=== PATIENT | male | born 1995 | race Caucasian/White ===

== ENCOUNTER 2019-08-20 00:55 | Emergency (ER) | payer OTHER, SELFPAY ==
--- NOTE | ~2019-08-20 | XR_ITS ---
EXAMINATION: XR chest 1V portable DATE: 08/20/2019 01:33 INDICATION: Cough. TECHNIQUE: A single frontal view of the chest was obtained on 2 radiographs. COMPARISON: Chest 2 views 12/27/2018 FINDINGS: The chest demonstrates clear lungs without pneumonia, pleural effusion, or pneumothorax. Th e heart size is normal. IMPRESSION: 1. No acute cardiopulmonary disease. Reviewed, dictated and finalized at location A.
[2019-08-20 01:02] VITALS: BP 166/88; PULSE 87; RESP 16; TEMP 37; O2SAT 97
--- NOTE | 2019-08-20 01:09 | ED.SOB ---
HPI - SOB/Dyspnea General Chief Complaint: Shortness of Breath/Dyspnea Stated Complaint: asthma Time Seen by Provider: 08/20/19 00:59 Source: RN notes reviewed History of Present Illness HPI Narrative: Patient presents emergency department from home for asthma exacerbation. Patient states that roughly 1 hour ago began to feel short of breath. States he was having wheezing and uses inhaler at home with no relief. Patient states he has had some congestion over the past 2 days with a dry cough. Denies any fevers or chills chest pain abdominal pain nausea vomiting or any other symptoms. Patient states this does feel like a normal flareup of his asthma. Related Data Home Medications Medication Instructions Recorded Confirmed albuterol sulfate 90 mcg/actuation 2 puff INHALATION Q4H PRN gm 06/12/19 06/12/19 aerosol inhaler cetirizine 10 mg tablet 10 mg PO DAILY 06/12/19 06/12/19 fluticasone propionate 50 2 spray NASAL DAILY 06/12/19 06/12/19 mcg/actuation nasal spray,suspension Allergies Allergy/AdvReac Type Severity Reaction Status Date / Time No Known Allergies Allergy Unknown Unverified 12/27/18 10:00 Review of Systems Review of Systems: Narrative: Gen.: Denies fevers or chills ENT: Denies congestion Respiratory: See HPI GI: Denies abdominal pain nausea, emesis or diarrhea Musculoskeletal: Denies back pain or muscle pain Neuro: Denies numbness, tingling, weakness or focal weakness Skin: Denies rash Except as documented, all other systems reviewed and negative PMFSH Past Medical History Medical History (Updated 08/20/19 @ 02:04 by Montez Smalls DO) Asthma Social History Social History Smoking status: Never smoker Alcohol intake: current Exam Narrative: Exam Narrative: APPEARANCE: No acute distress, nontoxic, resting in bed EYES: EOMI HEENT: Normocephalic, atraumatic, OMM RESPIRATORY: No respiratory distress wheezing in the bilateral upper lung matias, decreased breath sounds at bases, no rhonchi or rales. CARDIOVASCULAR: Regular rate and rhythm without murmurs rubs or gallops. ABDOMINAL: Soft, nontender, nondistended, no rebound or guarding MUSCULOSKELETAl: Moves all extremities. No clubbing, cyanosis or edema. NEURO: Awake and alert. Following commands, speech normal, no focal deficits SKIN:: Warm, dry. No rashes lesions or abrasions PSYCHIATRIC: Normal affect/mood, Course Course Emergency Course: Patient states he is feeling much better following breathing treatments. Repeat lung exam clear all station bilaterally Discussed with patient results of workup and diagnosis. Discussed need for follow-up with primary care, proper use of medication, and reasons to return to the emergency department. Patient understands and agrees to current treatment plan. States he has an inhaler at home Vital Signs Vital signs: Vital Signs Temperature 98.6 F 08/20/19 01:02 Pulse Rate 87 08/20/19 01:02 Respiratory Rate 16 08/20/19 01:02 Blood Pressure 166/88 H 08/20/19 01:02 Pulse Oximetry 97 08/20/19 01:02 Temperature 98.6 F 08/20/19 01:02 Pulse Rate 92 08/20/19 02:28 Respiratory Rate 20 08/20/19 02:28 Blood Pressure 166/88 H 08/20/19 01:02 Pulse Oximetry 97 08/20/19 01:02 MDM - SOB/Dyspnea Imaging Data Attestation: I personally reviewed and interpreted this imaging study as follows: My impression: Chest x-ray reviewed by myself shows no acute process Discharge Plan Discharge Clinical Impression: Asthma exacerbation Patient Disposition: Home, Self-Care Condition: Stable Instructions: Antibiotic Form, Asthma (ED) Additional Instructions: Return for increasing shortness of breath fever or any other symptoms of concern Prescriptions: New prednisone 20 mg tablet 20 mg PO BID Qty: 8 RF: 0 No Action albuterol sulfate 90 mcg/actuation HFA aerosol inhaler 2 puff INHALATION Q4H PRN
[2019-08-20] MEDS: predniSONE 20 MG TABLET 60 MG PO (01:12)
[2019-08-20 01:23] VITALS: PULSE 90; RESP 18
[2019-08-20] MEDS: IPRATROPIUM BR 0.02% INH SOLN 0.5 MG/2.5 ML VIAL INHALATION ×2 (01:23→02:21)
[2019-08-20] MEDS: ALBUTEROL SULFATE NEB 2.5 MG/0.5 ML INH 5 MG INHALATION ×2 (01:23→02:20)
[2019-08-20 01:29] VITALS: PULSE 101; RESP 20
[2019-08-20 02:22] VITALS: PULSE 90; RESP 20
[2019-08-20 02:28] VITALS: PULSE 92; RESP 20
[2019-08-20 02:48] VITALS: BP 122/77; PULSE 77; RESP 18; O2SAT 98
== END 2019-08-20 02:49 | disposition home or self-care (01) ==
PROVIDERS: Emergency Provider Emergency Medicine; PCP Internal Medicine
DX: J45.901 Unspecified asthma with (acute) exacerbation (principal)
CPT/HCPCS: 71045; 94640; 99283; J7512

== ENCOUNTER 2019-11-18 16:11 | Emergency (ER) | payer OTHER, SELFPAY ==
[2019-11-18 16:20] VITALS: BP 150/73; PULSE 81; RESP 20; TEMP 36.8; O2SAT 100
--- NOTE | 2019-11-18 16:41 | ED.URI ---
HPI - URI/Sore Throat General Chief Complaint: Upper Respiratory Infection Stated Complaint: swollen glands Time Seen by Provider: 11/18/19 16:41 Source: patient and RN notes reviewed Mode of arrival: ambulatory Limitations: no limitations History of Present Illness HPI Narrative: 23-year-old male who presents to [facility] care with complaints of swollen glands for the past 2 to 3 days to the left side of his neck. Patient states last week he had left armpit lymph node swelling with resolution at present time. Patient denies any sore throat,any ear pain, fevers,sinus congestion, headaches or any respiratory congestion. Patient has history of asthma, denies any wheezing or any dyspnea, lungs clear to auscultation, SAO2 100% on room air. MD elicited complaint: other (Swollen glands) Pertinent past history: asthma and other Onset (ago): day(s) (2 to 3 days neck one-week left axilla) Consistency: intermittent Severity: mild Pain scale (0-10): 4 Able to tolerate fluids by mouth: Yes Exacerbating factors: nothing Relieving factors: nothing Associated symptoms: denies other symptoms Treatments prior to arrival: none Related Data Home Medications Medication Instructions Recorded Confirmed albuterol sulfate 90 mcg/actuation 2 puff INHALATION Q4H PRN gm 06/12/19 09/25/19 aerosol inhaler cetirizine 10 mg tablet 10 mg PO DAILY 06/12/19 09/25/19 fluticasone propionate 50 2 spray NASAL DAILY 06/12/19 09/25/19 mcg/actuation nasal spray,suspension Allergies Allergy/AdvReac Type Severity Reaction Status Date / Time No Known Allergies Allergy Unknown Unverified 12/27/18 10:00 Review of Systems Review of Systems: Narrative: CONSTITUTIONAL: Denies fever, chills, or sweats. EYES: Denies visual changes, redness, or discharge. ENT: Denies rhinorrhea, congestion, sore throat, or otalgia, swollen glands left neck CARDIOVASCULAR: Denies chest pain, palpitations, or edema. RESPIRATORY: Denies cough or dyspnea. GASTROINTESTINAL: Denies abdominal pain, nausea, vomiting, or diarrhea. GENITOURINARY: Denies dysuria or hematuria. SKIN: Denies rash or itching. MUSCULOSKELETAL: Denies back pain, joint pain, or myalgia, one week duration of swollen lymph node left axilla which has resolved NEUROLOGIC: Denies headache, numbness, or weakness. PSYCHIATRIC: Denies anxiety or depression. All systems reviewed & are unremarkable except as noted in HPI and below PMFSH Past Medical History Medical History (Updated 11/19/19 @ 00:00 by Jonny Silva) Asthma Fracture of left wrist Social History Social History (Updated 11/18/19 @ 17:09 by Lou Odell NP) Smoking status: Never smoker Alcohol intake: current Living arrangements: with family Occupation/Education: student Gender identity (if verbalized by the patient): Male Comments At time of signature, agree with nursing past medical, surgical, social history. There is no relevant family history pertinent to the presenting complaint Exam Narrative: Exam Narrative: GENERAL: Well-appearing, well-nourished, and in no acute distress. HEAD: Normocephalic, atraumatic. EYES: PERRLA and EOMI. ENT: Nares clear, no rhinorrhea or epistaxis. Mucous membranes moist.TM's normal with good light reflex.throat pink with no tonsil enlargement or any exudates NECK: Supple lymphadenopathy present to left side of neck, no palpation of enlarged lymph nodes in axilla or groin CHEST: Clear to auscultation. No respiratory distress.SAO2 100% on room air HEART: Regular rate and rhythm. No murmur heard. Normal peripheral pulses. ABDOMEN: Soft, nontender, nondistended, normal active bowel sounds. EXTREMITIES: Normal range of motion. No edema. SKIN: Warm, dry, no rash. NEURO: No focal deficits. Alert and oriented x3. Course Vital Signs Vital signs: Vital Signs Temperature 36.8 C 11/18/19 16:20 Pulse Rate 81 11/18/19 16:20 Respiratory Rate 20 11/18/19 16:20 Blood Pressure 150/73 H
== END 2019-11-18 17:20 | disposition home or self-care (01) ==
PROVIDERS: Emergency Provider Registered Nurse; PCP Internal Medicine
DX: B34.9 Viral infection, unspecified (principal); J45.909 Unspecified asthma, uncomplicated
CPT/HCPCS: 36416; 86308; 99213; G0463

== ENCOUNTER 2021-02-21 15:27 | Emergency (ER) | payer OTHER, SELFPAY ==
[2021-02-21 15:35] VITALS: BP 147/72; PULSE 66; RESP 16; TEMP 37.2; O2SAT 100
--- NOTE | 2021-02-21 15:54 | ED.URI ---
HPI - URI/Sore Throat General Chief Complaint: Upper Respiratory Infection Stated Complaint: Sore Throat Time Seen by Provider: 02/21/21 15:50 Source: patient, RN notes reviewed and old records reviewed Mode of arrival: ambulatory Limitations: no limitations History of Present Illness HPI Narrative: 25 year old male who presents to [facility] care with complaints of not feeling well today,states he woke up with a sore throat. Patient states that his throat doesn't hurt as bad now but he was exposed to strep over the weekend by significant other. He admits also to having some nasal congestion and drainage, denies any known fevers, chills or sweats.Patient denies any body aches, has had COVID vaccinations. MD elicited complaint: sore throat, rhinorrhea and nasal congestion Related Data Allergies Allergy/AdvReac Type Severity Reaction Status Date / Time No Known Allergies Allergy Unknown Verified 11/28/19 15:58 Review of Systems Review of Systems: CONSTITUTIONAL: Denies fever, chills, or sweats. EYES: Denies visual changes, redness, or discharge. ENT: Positive rhinorrhea, congestion, sore throat, no otalgia. CARDIOVASCULAR: Denies chest pain, palpitations, or edema. RESPIRATORY: Denies cough or dyspnea. GASTROINTESTINAL: Denies abdominal pain, nausea, vomiting, or diarrhea. GENITOURINARY: Denies dysuria or hematuria. SKIN: Denies rash or itching. MUSCULOSKELETAL: Denies back pain, joint pain, or myalgia. NEUROLOGIC: Denies headache, numbness, or weakness. PSYCHIATRIC: Denies anxiety or depression. All systems reviewed & are unremarkable except as noted in HPI and below PMFSH Past Medical History Medical History (Updated 02/21/21 @ 18:06 by Lou Odell NP) Asthma Fracture of left wrist Surgical History Surgical History (Updated 02/21/21 @ 18:06 by Lou Odell NP) No history of previous surgery Family History Family History (Updated 02/21/21 @ 18:10 by Lou Odell NP) Other No significant family history Social History Social History Smoking status: Never smoker Alcohol intake: current Drinks per week: 1 Alcohol use details: beer Substance use: never Gender identity (if verbalized by the patient): Male Comments At time of signature, agree with nursing past medical, surgical, social and family history. There is no relevant family history pertinent to the presenting complaint Exam Narrative: GENERAL: Well-appearing, well-nourished, and in no acute distress. HEAD: Normocephalic, atraumatic. EYES: PERRLA and EOMI. ENT: Nares pink,clear rhinorrhea no epistaxis. Mucous membranes moist.Tm's normal with good light reflex, throat with some redness, no lesions or exudates, tonsils red mild swelling, some post nasal drainage noted. post nasal drainage present, NECK: Supple.no lymphadenopathy CHEST: Clear to auscultation. No respiratory distress.SAO2 100% on room air HEART: Regular rate and rhythm. No murmur heard. Normal peripheral pulses. ABDOMEN: Soft, nontender, nondistended, normal active bowel sounds. EXTREMITIES: Normal range of motion. No edema. SKIN: Warm, dry, no rash. NEURO: No focal deficits. Alert and oriented x3. Course Vital Signs Vital signs: Vital Signs Temperature 37.2 C 02/21/21 15:35 Pulse Rate 66 02/21/21 15:35 Respiratory Rate 16 02/21/21 15:35 Blood Pressure 147/72 H 02/21/21 15:35 Pulse Oximetry 100 02/21/21 15:35 Temperature 37.2 C 02/21/21 15:35 Pulse Rate 66 02/21/21 15:35 Respiratory Rate 16 02/21/21 15:35 Blood Pressure 147/72 H 02/21/21 15:35 Pulse Oximetry 100 02/21/21 15:35 MDM - URI/Sore Throat Differential Diagnosis Differential diagnosis: Likely upper respiratory infection, pharyngitis and other (exposure to strep pharyngitis,) Medical Records Attestation: I reviewed the patient's medical records. Lab Data Attestation: I reviewed the patient's lab result
== END 2021-02-21 16:13 | disposition home or self-care (01) ==
PROVIDERS: Emergency Provider Registered Nurse; PCP Internal Medicine
DX: J02.9 Acute pharyngitis, unspecified (principal); Z20.818 Contact with and (suspected) exposure to other bacterial communicable diseases; J45.909 Unspecified asthma, uncomplicated
CPT/HCPCS: 87081; 87880; 99213; G0463

== ENCOUNTER 2021-07-22 11:14 | Emergency (ER) | payer OTHER, SELFPAY ==
[2021-07-22 11:19] VITALS: BP 127/70; PULSE 68; RESP 12; TEMP 36.9; O2SAT 100
--- NOTE | 2021-07-22 11:37 | ED.URI ---
HPI - URI/Sore Throat General Chief Complaint: Upper Respiratory Infection Stated Complaint: Cough, congestion Time Seen by Provider: 07/22/21 11:37 Source: patient and RN notes reviewed Mode of arrival: ambulatory Limitations: no limitations History of Present Illness HPI Narrative: 25-year-old male presented for complaint of sinus pressure and congestion, cough and wheezing for approximately 1 week. He states started with headache, body aches, sinus pressure/congestion, cough, fever/chills, and now it is in his chest. He has a history of asthma and has been using his inhaler more often. Cough is worse when lying down. He denies chest pain, nausea, vomiting, diarrhea, fever, chills, body aches. Recent covid in May 2021. MD elicited complaint: cough Related Data Home Medications Medication Instructions Recorded Confirmed albuterol 07/22/21 fluticasone propionate [Flovent INHALATION 07/22/21 HFA] Allergies Allergy/AdvReac Type Severity Reaction Status Date / Time No Known Allergies Allergy Unknown Verified 11/28/19 15:58 Review of Systems Review of Systems: CONSTITUTIONAL: Denies malaise, chills, sweats, fever EYES: Denies visual changes, redness, or discharge ENT: Reports rhinorrhea, congestion, sinus pain CARDIOVASCULAR: Denies chest pain, palpitations, edema RESPIRATORY: Reports cough, post nasal drainage. Denies dyspnea GASTROINTESTINAL: Denies abdominal pain, nausea, vomiting, diarrhea SKIN: Denies rash or itching MUSCULOSKELETAL: Denies myalgia NEUROLOGIC: Denies headache PMFSH Past Medical History Medical History (Updated 07/22/21 @ 11:49 by Reyna Garcia APRN) Asthma Fracture of left wrist Surgical History Surgical History No history of previous surgery Family History Family History Other No significant family history Social History Social History Smoking status: Never smoker Alcohol intake: current Drinks per week: 1 Alcohol use details: beer Substance use: never Gender identity (if verbalized by the patient): Male Exam Narrative: GENERAL: Ill-appearing, nontoxic HEAD: Normocephalic EYES: conjunctivae clear ENT: Mucous membranes moist. TM pearly mancilla with dull light reflex bilaterally; no tragal tenderness. Oropharynx erythematous without lesions or exudate, no drooling, no hoarseness, no trismus, uvula midline. NECK: Supple. No lymphadenopathy CHEST: Left lower lobe wheezing, No respiratory distress, speaks in full sentences. HEART: Regular rate and rhythm. No murmur heard. SKIN: Warm, dry, no rash. NEURO: Alert and oriented x3. PSYCH: Normal mood and affect Course Course Emergency Course: Patient is aware of diagnosis, understands and agrees to treatment plan. Anticipatory guidance given. Patient agrees to follow-up as directed and is aware of reasons to seek care at the emergency department. Portions of this record may have been created with voice recognition software Level of Care: Express Care Visit Vital Signs Vital signs: Vital Signs Temperature 98.4 F 07/22/21 11:19 Pulse Rate 68 07/22/21 11:19 Respiratory Rate 12 07/22/21 11:19 Blood Pressure 127/70 07/22/21 11:19 Pulse Oximetry 100 07/22/21 11:19 Temperature 98.4 F 07/22/21 11:19 Pulse Rate 68 07/22/21 11:19 Respiratory Rate 12 07/22/21 11:19 Blood Pressure 127/70 07/22/21 11:19 Pulse Oximetry 100 07/22/21 11:19 reviewed MDM - URI/Sore Throat MDM Narrative Medical decision making narrative: sx c/w URI. No indication to test for covid as he was positive 05/2021. Given hx asthma, will defer imaging at this time. Steroid, abx and will continue inhalers. Differential Diagnosis Differential diagnosis: Likely upper respiratory infection, sinusitis and viral infection Discharge P
== END 2021-07-22 11:54 | disposition home or self-care (01) ==
PROVIDERS: Emergency Provider Nurse Practitioner Family; PCP Internal Medicine
DX: J06.9 Acute upper respiratory infection, unspecified (principal); J45.909 Unspecified asthma, uncomplicated
CPT/HCPCS: 99213; G0463

== ENCOUNTER 2021-08-14 16:44 | Emergency (ER) | payer OTHER, SELFPAY ==
[2021-08-14 16:49] VITALS: BP 136/75; PULSE 61; RESP 16; TEMP 36.8; O2SAT 100
--- NOTE | 2021-08-14 16:51 | ED.URI ---
HPI - URI/Sore Throat General Chief Complaint: Upper Respiratory Infection Stated Complaint: Shortness of breath, cough Time Seen by Provider: 08/14/21 16:56 Source: patient, RN notes reviewed and old records reviewed Mode of arrival: ambulatory Limitations: no limitations History of Present Illness HPI Narrative: 25 year old male who presents to [facility] care with complaints of feeling tightness with breathing and cough with some shortness of breath. Patient states that he was treated at the clinic 3 weeks ago for a sinus infection with antibiotic, steroids and his symptoms did get better but he continues to have cough. Patient reports that he is out of his albuterol inhaler and he has been using Primatene OTC. Patient states that he notes tightness to his chest at night and with activity with cough that is non productive and dyspnea especially with activity. States he played indoor soccer yesterday and really had a hard time with coughing and feeling short of breath after playing. Patient states that he is using his daily Flovent. MD elicited complaint: cough and other (shortness of breath) Pertinent past history: asthma Related Data Home Medications Medication Instructions Recorded Confirmed fluticasone propionate [Flovent 1 inh INHALATION BID 07/22/21 08/14/21 HFA] loratadine [Claritin] 10 mg PO DAILY 08/14/21 08/14/21 Allergies Allergy/AdvReac Type Severity Reaction Status Date / Time No Known Allergies Allergy Unknown Verified 08/14/21 16:50 Review of Systems Review of Systems: CONSTITUTIONAL: Denies fever, chills, or sweats. EYES: Denies visual changes, redness, or discharge. ENT: Denies rhinorrhea, congestion, sore throat, or otalgia. CARDIOVASCULAR: Denies chest pain, palpitations, or edema. RESPIRATORY: Positive for cough and dyspnea with exertion. GASTROINTESTINAL: Denies abdominal pain, nausea, vomiting, or diarrhea. GENITOURINARY: Denies dysuria or hematuria. SKIN: Denies rash or itching. MUSCULOSKELETAL: Denies back pain, joint pain, or myalgia. NEUROLOGIC: Denies headache, numbness, or weakness. PSYCHIATRIC: Denies anxiety or depression. All systems reviewed & are unremarkable except as noted in HPI and below PMFSH Past Medical History Medical History Asthma Fracture of left wrist Surgical History Surgical History No history of previous surgery Family History Family History Other No significant family history Social History Social History Smoking status: Never smoker Alcohol intake: current Drinks per week: 1 Alcohol use details: beer Substance use: never Gender identity (if verbalized by the patient): Male Comments At time of signature, agree with nursing past medical, surgical, social and family history. There is no relevant family history pertinent to the presenting complaint Exam Narrative: GENERAL: Well-appearing, well-nourished, and in no acute distress. HEAD: Normocephalic, atraumatic. EYES: PERRLA and EOMI. ENT: Nares clear, no rhinorrhea or epistaxis. Mucous membranes moist.TM's normal with good light reflex, throat pink with no exudates or lesions no tonsil enlargement NECK: Supple.no lymphadenopathy CHEST: Clear decreased to auscultation. No respiratory distress SAO2 100% on room air, cough lingering post sinus infection 3 weeks ago, feeling of tightness to chest with his breathing especially at night and with activity, no tachypnea or accessory muscle use noted. HEART: Regular rate and rhythm. No murmur heard. Normal peripheral pulses. ABDOMEN: Soft, nontender, nondistended, normal active bowel sounds. EXTREMITIES: Normal range of motion. No edema. SKIN: Warm, dry, no rash. NEURO: No focal deficits. Alert and oriented x3. Course Course Lev
== END 2021-08-14 17:13 | disposition home or self-care (01) ==
PROVIDERS: Emergency Provider Registered Nurse; PCP Internal Medicine
DX: J45.901 Unspecified asthma with (acute) exacerbation (principal); R05.9 Cough, unspecified
CPT/HCPCS: 99213; G0463

== ENCOUNTER 2021-11-01 18:38 | Emergency (ER) | payer OTHER, SELFPAY ==
[2021-11-01 18:46] VITALS: BP 143/75; PULSE 76; RESP 16; TEMP 37.3; O2SAT 100
--- NOTE | 2021-11-01 18:47 | ED.GENADULT ---
HPI - General Adult General Chief complaint: Skin/Abscess/Foreign Body Stated complaint: dog bite History of Present Illness HPI narrative: Patient is a 25-year-old male who presents to the [facility] care via POV for evaluation of multiple insect bites noted to left ankle that has been present for 1 week. He reports the area is erythematous. The area was also pruritic although this symptom has resolved since onset. No improvement with OTC cortisone ointment. Patient does not identify alleviating factors. He was concerned it was a spider bite prompting today's visit. Related Data Home Medications Medication Instructions Recorded Confirmed fluticasone propionate 44 1 inh inhalation BID 07/22/21 08/14/21 mcg/actuation HFA aerosol inhaler (Flovent HFA) loratadine 10 mg tablet (Claritin) 10 mg PO DAILY 08/14/21 08/14/21 Allergies Allergy/AdvReac Type Severity Reaction Status Date / Time No Known Allergies Allergy Unknown Verified 08/14/21 16:50 Review of Systems Review of Systems: Denies injury. Pertinent negatives fever, chills, sweats, malaise, poor p.o. intake, change in appetite, headache, LOC, dizziness, swelling, warmth, pain, streaking, drainage, numbness, tingling, loss of sensation, foreign body sensation, deformity, sob, chest pain, and heart palpitations/murmurs. PMFSH Past Medical History Medical History Asthma Fracture of left wrist Surgical History Surgical History No history of previous surgery Family History Family History Other No significant family history Social History Social History Smoking status: Never smoker Alcohol intake: current Drinks per week: 1 Alcohol use details: beer Substance use: never Gender identity (if verbalized by the patient): Male Comments I have reviewed and agree with the patient's past medical, surgical, social, and family hx as documented by the RN. There is no relevant family history pertinent to the presenting complaint. Exam Narrative: GENERAL: Well-appearing, well-nourished, and in no acute distress. HEAD: Normocephalic, atraumatic. No facial swelling appreciated. EYES: PERRLA and EOMI. No evidence of erythema, swelling, or drainage. ENT: Nares clear, no rhinorrhea or epistaxis.Mucous membranes moist and pink. Uvula is midline without erythema and swelling. No evidence of obstruction, petechial rash, cobblestoning, lesions, ulcers, erythema, swelling, exudates, peritonsillar abscess, tenting, or drooling. Breath odor and voice normal. NECK: Supple. No Lymphadenopathy or nuchal rigidity appreciated. CHEST: Bilateral lung matias are clear to auscultation. No respiratory distress. No evidence of cough or pleuritic cp upon examination. HEART: Regular rate and rhythm. No murmur, gallop, or rub heard. EXTREMITIES: Normal range of motion. No edema. SKIN: Warm, dry. No evidence of cellulitis, abscess, streaking, induration, abrasions/lacerations, petechiae, hematoma, contusion, drainage, or bleeding. 2 small annular areas of erythema that are approximately 0.25 cm in size noted to left ankle. NEURO: No focal deficits. Alert and oriented x3. SPECIAL OBSERVATIONS: Smiling. Laughing. No evidence of discomfort. Course Course Level of Care: Express Care Visit Medical Decision Making Differential Diagnosis Differential Diagnosis: Contact/allergic dermatitis, atopic dermatitis, psoriasis, cellulitis, tinea infection, parasite infection, shingles Vital Signs Vital Signs: Due to an elevated blood pressure, I had a detailed discussion with the patient and/or guardian regarding the need for follow-up with their primary care provider within the next 3-4 days. Patient verbalized understanding and agreed. Critical
== END 2021-11-01 18:58 | disposition home or self-care (01) ==
PROVIDERS: Emergency Provider Nurse Practitioner Family; PCP Internal Medicine
DX: S90.562A Insect bite (nonvenomous), left ankle, initial encounter (principal); W57.XXXA Bitten or stung by nonvenomous insect and other nonvenomous arthropods, initial encounter; J45.909 Unspecified asthma, uncomplicated
CPT/HCPCS: 99213; G0463

== ENCOUNTER 2022-03-30 16:59 | Emergency (ER) | payer OTHER, SELFPAY ==
--- NOTE | 2022-03-30 17:02 | ED.URI ---
HPI - URI/Sore Throat General Chief Complaint: Upper Respiratory Infection Stated Complaint: Congestion,Body Aches,Fatigue Time Seen by Provider: 03/30/22 17:02 Source: patient and RN notes reviewed History of Present Illness HPI Narrative: Patient is a 26-year-old male who presents to the Urgent Care with complaints of congestion, body aches, fatigue, coughs. Patient states he is asthmatic and has been using his inhaler but does feel increased shortness of breath. Patient states symptoms started 2 days ago. He has been taking ibuprofen and [id number] TheraFlu. No other acute complaints. No acute distress noted. Patient aware of the plan of care. Some parts of this dictation were generated by voice recognition software and may contain typographical and/or grammatical inaccuracies. Related Data Home Medications Medication Instructions Recorded Confirmed fluticasone propionate 44 1 inh inhalation BID 07/22/21 03/30/22 mcg/actuation HFA aerosol inhaler (Flovent HFA) Allergies Allergy/AdvReac Type Severity Reaction Status Date / Time No Known Allergies Allergy Unknown Verified 03/30/22 17:09 Review of Systems Review of Systems: CONSTITUTIONAL: Reports a fever and fatigue EYES: Denies visual changes, redness, or discharge. ENT: Reports of congestion, sore throat CARDIOVASCULAR: Denies chest pain, palpitations, or edema. RESPIRATORY: Parts of cough with intermittent dyspnea GASTROINTESTINAL: Denies abdominal pain, nausea, vomiting, or diarrhea. GENITOURINARY: Denies dysuria or hematuria. SKIN: Denies rash or itching. MUSCULOSKELETAL: Denies back pain, joint pain. Reports body aches NEUROLOGIC: Denies headache, numbness, or weakness. All other systems reviewed are negative, except as documented in HPI. [facility] Past Medical History Medical History Asthma Fracture of left wrist Surgical History Surgical History No history of previous surgery Family History Family History Other No significant family history Social History Social History Smoking status: Never smoker Alcohol intake: current Drinks per week: 1 Alcohol use details: beer Substance use: never Gender identity (if verbalized by the patient): Male Comments At the time of my signature, I reviewed and agree with the nursing past medical, surgical, social, and family history. There is no relevant family history pertinent to the patient complaint. Exam Narrative: GENERAL: This is a well-nourished, well-developed patient. Appears fatigued HEAD: normocephalic, atraumatic. EYES: PERRL. Sclera clear/white. Vision is grossly intact. EARS: External ears normal, auditory canals clear and without drainage, TMs normal without perforation. Hearing grossly intact. NOSE: External nose normal with no obvious nasal discharge, nares without redness, clear rhinorrhea. THROAT: Mucous membranes moist, mild erythema to posterior pharynx with moderate postnasal drainage NECK: Neck supple, non-tender without lymphadenopathy CARDIOVASCULAR: Regular rate and rhythm without murmurs, gallops, or rubs. RESPIRATORY: Dry cough noted on exam. Clear to auscultation. Breath sounds equal bilaterally. No wheezes, rales, or rhonchi. SKIN: warm, intact with no suspicious lesions or rash, good texture and turgor. NEURO: awake, alert, and oriented to person, place and time. There were no obvious focal neurologic abnormalities. EXTREMITIES: No clubbing, cyanosis, or edema. Course Course Level of Care: Express Care Visit Vital Signs Vital signs: Vital Signs Temperature 101.3 F H 03/30/22 17:12 Pulse Rate 112 H 03/30/22 17:12 Respiratory Rate 16 03/30/22 17:12 Blood Pressure 129/83 03/30/22 17:12 Pulse Oximetr
[2022-03-30 17:12] VITALS: BP 129/83; PULSE 112; RESP 16; TEMP 38.5; O2SAT 100
== END 2022-03-30 17:33 | disposition home or self-care (01) ==
PROVIDERS: Emergency Provider Nurse Practitioner Family; PCP Internal Medicine
DX: J10.1 Influenza due to other identified influenza virus with other respiratory manifestations (principal); J45.909 Unspecified asthma, uncomplicated
CPT/HCPCS: 87804; 99213; G0463

== ENCOUNTER 2022-07-05 18:27 | Emergency (ER) | payer OTHER, SELFPAY ==
[2022-07-05 18:38] VITALS: BP 126/75; PULSE 60; RESP 16; TEMP 36.6; O2SAT 100
[2022-07-05 18:41] VITALS: BP 126/75; PULSE 60; RESP 16; TEMP 36.6; O2SAT 100
--- NOTE | 2022-07-05 19:09 | ED.WOUNDLAC ---
HPI - Wound/Laceration General Chief Complaint: Wound/Laceration Stated Complaint: REDNESS/INFECTION S/P FINGER LAC Time Seen by Provider: 07/05/22 18:55 Source: patient, RN notes reviewed and old records reviewed Mode of arrival: ambulatory Limitations: no limitations History of Present Illness HPI narrative: 26 year old male presents to [facility] care with complaint of small wound to his anterior right ring finger at the PIPJ area which occurred last week when accidently hit his finger on a door. Patient has small scabbed area with top of scab loosened with reported purulent drainage noted today with some minimal redness of tissue across knuckle area. Patient concerned of infection.Patient denies any fevers, chills or sweats. Onset (ago): week(s) (1) Treatments prior to arrival: other (none) Related Data Home Medications Medication Instructions Recorded Confirmed albuterol sulfate 2.5 mg/3 mL 2.5 mg inhalation Q6H PRN 07/05/22 07/05/22 (0.083 %) solution for nebulization Shortness Of Breath cetirizine 10 mg tablet (Zyrtec) 10 mg PO DAILY 07/05/22 07/05/22 Allergies Allergy/AdvReac Type Severity Reaction Status Date / Time No Known Allergies Allergy Unknown Verified 07/05/22 18:38 Review of Systems Review of Systems: CONSTITUTIONAL: Denies fever, chills, or sweats. CARDIOVASCULAR: Denies chest pain, palpitations, or edema. RESPIRATORY: Denies cough or dyspnea. GASTROINTESTINAL: Denies abdominal pain, nausea, vomiting SKIN: Reports mild redness and swelling to right ring finger PIPJ area with scabbed area with top of scab lifted no present drainage noted. Reports purulent drainage. MUSCULOSKELETAL: Denies myalgia. NEUROLOGIC: Denies headache, numbness All systems reviewed & are unremarkable except as noted in HPI and below PMFSH Past Medical History Medical History Asthma Fracture of left wrist Surgical History Surgical History No history of previous surgery Family History Family History Other No significant family history Social History Social History Smoking status: Never smoker Alcohol intake: current Drinks per week: 1 Alcohol use details: beer Substance use: never Lack of Transportation: No Lack of Food: Never True Current Housing: I Have Housing Concerned About Future Housing: No Difficulty Paying Gas/Electric Bills: No Difficulty Paying for Meds: No Currently Unemployed: No Difficulty w/ Childcare or Family Care: No Living arrangements: with family Occupation/Education: student Gender identity (if verbalized by the patient): Male Comments At time of signature, agree with nursing past medical, surgical, social and family history. There is no relevant family history pertinent to the presenting complaint Exam Narrative: GENERAL: Well-appearing, well-nourished, and in no acute distress. HEAD: Normocephalic, atraumatic. EYES: PERRLA and EOMI. ENT: Nares clear, no rhinorrhea or epistaxis. Mucous membranes moist. NECK: Supple.no lymphadenopathy CHEST: Clear to auscultation. No respiratory distress.SAO2 100% on room air HEART: Regular rate and rhythm. No murmur heard. Normal peripheral pulses. ABDOMEN: Soft, nontender, nondistended, normal active bowel sounds. EXTREMITIES: Normal range of motion. No edema. SKIN: Warm, dry. Erythema,no induration,positive tenderness, no warmth to right ring finger at PIPJ, 0.25 cm scabbed area dorsal PIPJ 4th right finger no drainage noted at present with reported purulent drainage from wound area. NEURO: No focal deficits. Alert and oriented x3. Course Course Emergency Course: Patient is aware of diagnosis, understands and agrees to treatment plan. Anticipatory guidance given. Patient agrees to follow-up as directed and
== END 2022-07-05 19:30 | disposition home or self-care (01) ==
PROVIDERS: Emergency Provider Registered Nurse; PCP Family Medicine
DX: S61.204A Unspecified open wound of right ring finger without damage to nail, initial encounter (principal); W22.8XXA Striking against or struck by other objects, initial encounter; J45.909 Unspecified asthma, uncomplicated
CPT/HCPCS: 99213; G0463

== ENCOUNTER 2022-07-25 13:20 | Emergency (ER) | payer OTHER, SELFPAY ==
[2022-07-25 14:10] VITALS: BP 117/69; PULSE 63; RESP 16; TEMP 36.1; O2SAT 100
--- NOTE | 2022-07-25 14:56 | ED.URI ---
HPI - URI/Sore Throat General Chief Complaint: Upper Respiratory Infection Stated Complaint: CONGESTION/SORE THROAT/DRAINAGE Time Seen by Provider: 07/25/22 14:57 History of Present Illness HPI Narrative: 26-year-old male presented for complaint of sore throat and nasal congestion for the last 3 days. He denies headache, ear pain, sob, wheezing, nausea, vomiting, fevers or chills. He has not taking anything for symptoms. Denies sick contacts. Related Data Home Medications Medication Instructions Recorded Confirmed albuterol sulfate 2.5 mg/3 mL 2.5 mg inhalation Q6H PRN 07/05/22 07/05/22 (0.083 %) solution for nebulization Shortness Of Breath cetirizine 10 mg tablet (Zyrtec) 10 mg PO DAILY 07/05/22 07/05/22 Allergies Allergy/AdvReac Type Severity Reaction Status Date / Time No Known Allergies Allergy Unknown Verified 07/05/22 18:38 Review of Systems Review of Systems: CONSTITUTIONAL: Denies body aches, fever, chills, or sweats. EYES: Denies visual changes, redness, or discharge. ENT: reports sore throat and rhinorrhea, congestion CARDIOVASCULAR: Denies chest pain, palpitations, or edema. RESPIRATORY: Denies dyspnea. GASTROINTESTINAL: Denies abdominal pain, nausea, vomiting, or diarrhea. SKIN: Denies rash, itching, or wounds. MUSCULOSKELETAL: Denies back pain, joint pain, or myalgia. NEUROLOGIC: Denies headache PMFSH Past Medical History Medical History Asthma Fracture of left wrist Surgical History Surgical History No history of previous surgery Family History Family History Other No significant family history Social History Social History Smoking status: Never smoker Alcohol intake: current Drinks per week: 1 Alcohol use details: beer Substance use: never Lack of Transportation: No Lack of Food: Never True Current Housing: I Have Housing Concerned About Future Housing: No Difficulty Paying Gas/Electric Bills: No Difficulty Paying for Meds: No Currently Unemployed: No Difficulty w/ Childcare or Family Care: No Living arrangements: with family Occupation/Education: student Gender identity (if verbalized by the patient): Male Exam Narrative: GENERAL: well-appearing, no acute distress. EYES: conjunctivae clear ENT: Mucous membranes moist. TMs pearly mancilla with normal light reflex bilaterally; no tragal tenderness. Oropharynx mildly erythematous without lesions. Tonsils normal without exudate. No drooling, no hoarseness, no trismus, uvula midline. No tripod positioning, hot potato voice, or soft palate swelling. NECK: Supple. No lymphadenopathy CHEST: Clear to auscultation, breath sounds equal. No respiratory distress, speaks in full sentences. HEART: Regular rate and rhythm. No murmur heard. SKIN: Warm, dry, no rash. NEURO: Alert and oriented x3. Course Course Emergency Course: Patient is aware of diagnosis, understands and agrees to treatment plan. Anticipatory guidance given. Patient agrees to follow-up as directed and is aware of reasons to seek care at the emergency department. Portions of this record may have been created with voice recognition software Level of Care: Express Care Visit Vital Signs Vital signs: Vital Signs Temperature 97 F L 07/25/22 14:10 Pulse Rate 63 07/25/22 14:10 Respiratory Rate 16 07/25/22 14:10 Blood Pressure 117/69 07/25/22 14:10 Pulse Oximetry 100 07/25/22 14:10 Temperature 97 F L 07/25/22 14:10 Pulse Rate 63 07/25/22 14:10 Respiratory Rate 16 07/25/22 14:10 Blood Pressure 117/69 07/25/22 14:10 Pulse Oximetry 100 07/25/22 14:10 MDM - URI/Sore Throat MDM Narrative Medical decision making narrative: strep result reviewed with pt. Patient will
== END 2022-07-25 15:06 | disposition home or self-care (01) ==
PROVIDERS: Emergency Provider Nurse Practitioner Family
DX: B34.9 Viral infection, unspecified (principal)
CPT/HCPCS: 87081; 87880; 99213; G0463

== ENCOUNTER 2023-07-05 19:10 | Emergency (ER) | payer OTHER, SELFPAY ==
--- NOTE | ~2023-07-05 | XR_ITS ---
EXAM: XR wrist LT min 3V DATE: 07/05/2023 19:41 HISTORY: L wrist injry. pain/swelling,ran into a wall. . COMPARISON: 01/25/2012. FINDINGS: Normal mineralization. Mildly displaced ulnar styloid fracture. Comminuted, intra-articula r, mildly impacted fracture of the distal left radius, with buckling of the dorsal cortex. No lytic o r blastic lesion. Joint spaces are maintained. No erosion or periosteal change. Soft tissue swelling about the fracture site. IMPRESSION: Comminuted, intra-articular, mildly impacted fracture of the distal left radius. Mildly d isplaced left ulnar styloid fracture. Reviewed, dictated and finalized at location [facility] IMPRESSION: Comminuted, intra-articular, mildly impacted fracture of the distal left radius. Mildly displaced left ulnar styloid fracture.
[2023-07-05 19:25] VITALS: BP 133/57; PULSE 73; RESP 16; TEMP 36.5; O2SAT 100
--- NOTE | 2023-07-05 21:07 | PC.NURSE ---
Pt refused norco tablet for pain at this time stating that he does not need it right now.
--- NOTE | 2023-07-05 21:10 | ED.GENADULT ---
HPI - General Adult General Chief complaint: Extremity Injury, Upper Stated complaint: L wrist injury Time Seen by Provider: 07/05/23 20:45 Source: patient Mode of arrival: ambulatory Limitations: no limitations History of Present Illness HPI narrative: This is a 27-year-old male who presents to the ED with chief complaint of left wrist injury that occurred while playing indoor soccer tonight. Reports that he slid down to the ground and was pushed into the wall. Reports that his left wrist went directly into the wall. Denies any further sites of pain or injury. Denies numbness, weakness Related Data Home Medications Medication Instructions Recorded Confirmed albuterol sulfate 2.5 mg/3 mL 2.5 mg inhalation Q6H PRN 07/05/22 07/05/22 (0.083 %) solution for nebulization Shortness Of Breath cetirizine 10 mg tablet (Zyrtec) 10 mg PO DAILY 07/05/22 07/05/22 Allergies Allergy/AdvReac Type Severity Reaction Status Date / Time No Known Allergies Allergy Unknown Verified 07/05/23 20:44 Review of Systems Review of Systems: All systems as dictated in [facility] Past Medical History Medical History Asthma Fracture of left wrist Surgical History Surgical History No history of previous surgery Family History Family History Other No significant family history Social History Social History Smoking status: Never smoker Alcohol intake: current Drinks per week: 1 Alcohol use details: beer Substance use: never Lack of Transportation: No Lack of Food: Never True Current Housing: I Have Housing Concerned About Future Housing: No Difficulty Paying Gas/Electric Bills: No Difficulty Paying for Meds: No Currently Unemployed: No Difficulty w/ Childcare or Family Care: No Living arrangements: with family Occupation/Education: student Gender identity (if verbalized by the patient): Male Exam Narrative: GENERAL: Well-appearing, well-nourished, and in no acute distress. HEAD: Normocephalic, atraumatic. EYES: PERRLA and EOMI. ENT: Nares clear, no rhinorrhea or epistaxis. Mucous membranes moist. Oropharynx without tonsillar hypertrophy exudate or other lesions. NECK: Supple. No adenopathy or masses. CHEST: No respiratory distress. Clear to auscultation. No wheezes rales or rhonchi HEART: Regular rate and rhythm. No murmur heard. Normal peripheral pulses. ABDOMEN: Soft, nontender, nondistended, normal active bowel sounds. MSK: Tenderness throughout the left wrist joint. No deformity or bruising. Neurovascularly intact distally. Compartments soft MSK exam is otherwise intact. SKIN: Warm, dry, no rash. NEURO: Alert and oriented x3. No focal deficits. PSYCH: Normal mood and affect. Course Vital Signs Vital signs: Vital Signs Temperature 97.7 F 07/05/23 19:25 Pulse Rate 73 07/05/23 19:25 Respiratory Rate 16 07/05/23 19:25 Blood Pressure 133/57 L 07/05/23 19:25 Pulse Oximetry 100 07/05/23 19:25 Oxygen Delivery Room Air 07/05/23 19:25 Temperature 97.7 F 07/05/23 19:25 Pulse Rate 73 07/05/23 19:25 Respiratory Rate 16 07/05/23 19:25 Blood Pressure 133/57 L 07/05/23 19:25 Pulse Oximetry 100 07/05/23 19:25 Oxygen Delivery Room Air 07/05/23 19:25 Medical Decision Making MDM Narrative Medical decision making narrative: This is a 27-year-old male who presents to the ED with chief complaint of left wrist injury occurred while playing indoor soccer today. Vitals are normal. Exam shows tenderness to the left wrist but no deformity. Neurovascularly intact. X-rays of the L wrist: IMPRESSION: Comminuted, intra-articular, mildly impacted fracture of the distal left radius. Mildly displaced left ulnar styloid fractur
== END 2023-07-05 22:25 | disposition home or self-care (01) ==
PROVIDERS: Emergency Provider Physician Assistant; PCP Family Medicine
DX: S52.612A Displaced fracture of left ulna styloid process, initial encounter for closed fracture (principal); J45.909 Unspecified asthma, uncomplicated; W18.39XA Other fall on same level, initial encounter
CPT/HCPCS: 29125; 73110; 99284

== ENCOUNTER 2024-05-09 15:04 | Emergency (ER) | payer BC, SELFPAY ==
[2024-05-09 15:23] VITALS: BP 139/83; PULSE 76; RESP 16; TEMP 36.9; O2SAT 97
--- NOTE | 2024-05-09 16:13 | ED_ITS ---
HPI - URI/Sore Throat General Chief Complaint: Upper Respiratory Infection Stated Complaint: chest congestion (SOB) Time Seen by Provider: 05/09/24 16:00 Source: patient, RN notes reviewed and old records reviewed Mode of arrival: ambulatory Limitations: no limitations History of Present Illness HPI Narrative: 28 year old male who presents to [facility] care with complaints of chest congestion and cough for the past 4 days. He reports history of asthma and has been using OTC inhaler since he is out of his prescribed medication.He reports no known fevers, chills or sweats, denies any body aches, states that cough is productive at times and he has noted some wheezing at night especially. MD elicited complaint: cough and other (wheezing out of prescribed inhalers.) Pertinent past history: asthma Onset (ago): day(s) (4) Able to tolerate fluids by mouth: Yes Treatments prior to arrival: other (OTC inhaler) Related Data Home Medications ?Medication ?Instructions ?Recorded ?Confirmed ?Last Taken ?Type albuterol sulfate 2.5 mg/3 mL 2.5 mg inhalation Q6H PRN 07/05/22 05/09/24 Unknown History (0.083 %) solution for nebulization Shortness Of Breath cetirizine 10 mg tablet (Zyrtec) 10 mg PO DAILY 07/05/22 05/09/24 Unknown History Allergies Allergy/AdvReac Type Severity Reaction Status Date / Time No Known Allergies Allergy Unknown Verified 05/09/24 15:20 Review of Systems Review of Systems: CONSTITUTIONAL: Denies malaise, chills, sweats, or fever. EYES: Denies visual changes, redness, or discharge. ENT: Reports rhinorrhea, congestion, no sinus pain,no otalgia and no sore throat. CARDIOVASCULAR: Denies chest pain, palpitations, or edema. RESPIRATORY: Reports cough.? Report some dyspnea and wheezing GASTROINTESTINAL: Denies abdominal pain, nausea, vomiting, diarrhea SKIN: Denies rash or itching. MUSCULOSKELETAL: Denies myalgia. NEUROLOGIC: Denies headache. All systems reviewed & are unremarkable except as noted in HPI and below PMFSH Past Medical History Medical History (Updated 05/13/24 @ 14:34 by Lou Odell NP) Seasonal allergies Fracture of left wrist Asthma Surgical History Surgical History No history of previous surgery Family History Family History Other No significant family history Social History Social History Smoking status: Never smoker Alcohol intake: current Drinks per week: 1 Alcohol use details: beer Substance use: never Lack of Transportation: No Lack of Food: Never True Current Housing: I Have Housing Concerned About Future Housing: No Difficulty Paying Gas/Electric Bills: No Difficulty Paying for Meds: No Currently Unemployed: No Difficulty w/ Childcare or Family Care: No Living arrangements: with family Occupation/Education: student Gender identity (if verbalized by the patient): Male Comments At time of signature, agree with nursing past medical, surgical, social and family history. There is no relevant family history pertinent to the presenting complaint Exam Narrative: GENERAL: Well-appearing, well-nourished, and in no acute distress. HEAD: Normocephalic EYES: PERRLA, conjunctivae clear ENT: Nares clear, turbinates edematous and erythematous, clear discharge. Mucous membranes moist. TM pearly mancilla with dull light reflex bilaterally; no tragal tenderness. Oropharynx erythematous without lesions. Tonsils not enlarged and w ithout exudate, no drooling, no hoarseness, no trismus, uvula midline.some post nasal drainage. NECK: Supple. No lymphadenopathy CHEST: End expiratory wheezes noted on auscultation, breath sounds equal. + wheezing,no rhonchi, rales, or stridor. No respiratory distress, speaks in full sentences.productive cough SAO2 97% on room air HEART: Regular rate and rhythm. No murmur heard. SKIN: Warm, dry, no rash. NEURO: Alert and oriented x3. PSYCH: Normal mood and affect Course Course Emergency Course: Patient is aware of diagnosis, understands and agrees to treatment plan.? Anticipatory guidance given.? Patient agrees to follow-up as directed and is aware of reasons to seek care at the emergency department. Portions of this record may have been created with voice recognition software Level of Care: Express Care Visit Vital Signs Vital signs: Vital Signs Temperature 36.9 C 05/09/24 15:23 Pulse Rate 76 05/09/24 15:23 Respiratory Rate 16 05/09/24 15:23 Blood Pressure 139/83 05/09/24 15:23 Pulse Oximetry 97 05/09/24 15:23 Temperature 36.9 C 05/09/24 15:23 Pulse Rate 76 05/09/24 15:23 Respiratory Rate 16 05/09/24 15:23 Blood Pressure 139/83 05/09/24 15:23 Pulse Oximetry 97 05/09/24 15:23 Reviewed MDM - URI/Sore Throat MDM Narrative Medical decision making narrative: Differential diagnosis considered: [place] virus, strep pharyngitis, allergic rhinitis, upper respiratory tract infection, sinusitis, rhinosinusitis, nasopharyngitis. viral pharyngitis, otitis media, otitis externa, pneumonia, bronchitis, viral cough syndrome, viral syndrome, and influenza.? Exam findings show no acute concerns or changes; patient is non-toxic appearing and is in no distress.? Patient is appropriate for outpatient treatment and follow-up. Differential Diagnosis Differential diagnosis: Likely upper respiratory infection, viral infection, bronchitis and other (cough, asthma exacerbation, COVID) Medical Records Attestation: I reviewed the patient's medical records. Lab Data Attestation: I reviewed the patient's lab results. Lab results narrative: Influenza A negative, Influenza B negative, COVID antigen negative Labs: Lab Results 05/09/24 Range/Units 15:23 POC Influenza A Ag Negative (Negative) POC Influenza B Ag Negative (Negative) POC SARS CoV-2 Ag Negative (Negative) reviewed Critical Care Time Critical Care Time Critical Care Time: No Discharge Plan Discharge Clinical Impression: Upper respiratory infection Qualifiers: URI type: unspecified URI Qualified Code(s): J06.9 - Acute upper respiratory infection, unspecified Cough Qualifiers: Cough type: acute Qualified Code(s): R05.1 - Acute cough Patient Disposition: Home, Self-Care Condition: Stable Instructions: Upper Respiratory Infection (ED), Acute Cough (ED) Additional Instructions: Increase fluids especially juices and water [id number] cough and cold medicine of your choice for your symptoms Zyrtec Claritin or Kendy daily Continue your inhaler/nebulizer as directed Steroids as directed--take with food heat to the face 20-30 minutes 4-6 times a day for pain Salt water gargles, throat lozenges or throat sprays as desired If your symptoms persist, change or worsen significantly before you can contact your personal physician then please, without delay, go to the emergency department for further evaluation. Follow-up with PCP in 7-10 days or sooner if needed Follow up with PCP soon in regards to your blood pressure which is elevated above threshold for referral. Blood pressure above 120/80 may indicate pre- hypertension. 139/83 Patient Language: [place] Prescriptions: New albuterol sulfate 90 mcg/actuation HFA aerosol inhaler 2 puff inhalation QID PRN (Reason: shortness of breath or wheezing) Qty: 6.7 1RF Pulmicort Flexhaler 90 mcg/actuation aerosol powdr breath activated 2 inh inhalation Q12H Qty: 1 1RF prednisone 20 mg tablet 20 mg PO BID Qty: 10 0RF No Action (DME) nebulizers [Aeroneb Go Nebulizer] Misc See Rx Instructions .Route Qty: 1 0RF Rx Instructions: As directed cetirizine [Zyrtec] 10 mg Tablet 10 mg PO DAILY albuterol sulfate 2.5 mg /3 mL (0.083 %) solution for nebulization 2.5 mg inhalation Q6H PRN (Reason: Shortness Of Breath) mupirocin 2 % ointment 1 applic topical BID Qty: 22 0RF Rx Instructions: to right finger albuterol sulfate 90 mcg/actuation HFA aerosol inhaler 1 inh inhalation Q4H Qty: 8.5 2RF hydrocodone-acetaminophen 5-325 mg tablet 1 tablet PO Q8H PRN (Reason: pain) Qty: 14 0RF Pulmicort Flexhaler 90 mcg/actuation aerosol powdr breath activated 1 inh inhalation Q12H Qty: 1 5RF Follow-up/Referrals: PHYSICIAN,CARE SERVICES MANAGER [Primary Care Provider] - Time of Disposition: 16:32 Quality Bill Coma Scale Eyes: Open Verbal: Oriented and Alert Motor: Follows Commands [place] Coma Total Score: 15
[2024-05-09 16:44] LABS: EDCOVIDSCREEN Negative (Negative); EDINFLUASCREEN Negative (Negative); EDINFLUBSCREEN Negative (Negative)
== END 2024-05-09 16:44 | disposition home or self-care (01) ==
PROVIDERS: Emergency Provider Registered Nurse
DX: J06.9 Acute upper respiratory infection, unspecified (principal); R05.1 Acute cough; Z20.822 Contact with and (suspected) exposure to COVID-19; J45.909 Unspecified asthma, uncomplicated
CPT/HCPCS: 87426; 87804; 99213; G0463

== ENCOUNTER 2024-07-28 11:48 | Emergency (ER) | payer BC, SELFPAY ==
[2024-07-28 11:59] VITALS: BP 137/77; PULSE 68; RESP 16; TEMP 36.6; O2SAT 100
--- NOTE | 2024-07-28 12:26 | ED.SKABFB ---
HPI - Skin/Abscess/Foreign Bdy General Chief complaint: Skin/Abscess/Foreign Body Stated complaint: Rash Time Seen by Provider: 07/28/24 12:18 Source: patient and RN notes reviewed Mode of arrival: ambulatory Limitations: no limitations History of Present Illness HPI narrative: Patient presents today complaining of a rash to the right antecubital fossa x8 days. Denies itching or pain. States that started 2 days after he was working in a [place], but is unsure if this correlates. He has tried some unknown ointment without relief of symptoms. Related Data Home Medications ?Medication ?Instructions ?Recorded ?Confirmed ?Last Taken ?Type albuterol sulfate 2.5 mg/3 mL 2.5 mg inhalation Q6H PRN 07/05/22 07/28/24 Unknown History (0.083 %) solution for nebulization Shortness Of Breath cetirizine 10 mg tablet (Zyrtec) 10 mg PO DAILY 07/05/22 07/28/24 Unknown History Allergies Allergy/AdvReac Type Severity Reaction Status Date / Time No Known Allergies Allergy Unknown Verified 07/28/24 12:01 Review of Systems Review of Systems: CONSTITUTIONAL: Denies body aches, fever, chills, or sweats. EYES: Denies visual changes, redness, or discharge. ENT: Denies rhinorrhea, congestion, sore throat, or otalgia. CARDIOVASCULAR: Denies chest pain, palpitations, or edema. RESPIRATORY: Denies cough or dyspnea. GASTROINTESTINAL: Denies abdominal pain, nausea, vomiting, or diarrhea. GENITOURINARY: Denies dysuria or hematuria. SKIN: + rash. MUSCULOSKELETAL: Denies back pain, joint pain, or myalgia. NEUROLOGIC: Denies headache, numbness, tingling, or weakness. PSYCH: Denies depression or anxiety. [facility] Past Medical History Medical History Seasonal allergies Fracture of left wrist Asthma Surgical History Surgical History No history of previous surgery Family History Family History Other No significant family history Social History Social History Smoking status: Never smoker Alcohol intake: current Drinks per week: 1 Alcohol use details: beer Substance use: never Lack of Transportation: No Lack of Food: Never True Current Housing: I Have Housing Concerned About Future Housing: No Difficulty Paying Gas/Electric Bills: No Difficulty Paying for Meds: No Currently Unemployed: No Difficulty w/ Childcare or Family Care: No Living arrangements: with family Occupation/Education: student Gender identity (if verbalized by the patient): Male Comments At time of signature, I have reviewed and agree with nursing past medical, surgical, social and family history unless otherwise noted. Please see nursing chart for further information. There is no relevant family history pertinent to the presenting complaint Exam Narrative: GENERAL: Well-appearing, well-nourished, and in no acute distress. HEAD: Normocephalic, atraumatic. EYES: EOMI. No redness or drainage. Conjunctivae normal. ENT: Mucous membranes pink and moist. NECK: Normal AROM. CHEST: No respiratory distress. EXTREMITIES: Normal range of motion. No edema. SKIN: Warm, dry. Capillary refill normal. Normal skin turgor. Approximately 3 x 3 cm erythematous rough macular rash to the right antecubital fossa, blanchable. NEURO: No focal deficits. Alert and oriented x3. Gait steady. PSYCH: Normal affect. No signs of depression or anxiety. Course Course Level of Care: Express Care Visit Vital Signs Vital signs: Vital Signs Temperature 97.9 F 07/28/24 11:59 Pulse Rate 68 07/28/24 11:59 Respiratory Rate 16 07/28/24 11:59 Blood Pressure 137/77 07/28/24 11:59 Pulse Oximetry 100 07/28/24 11:59 Temperature 97.9 F 07/28/24 11:59 Pulse Rate 68 07/28/24 11:59 Respiratory Rate 16 07/28/24 11:59 Blood Pressure 137/77 07/28/24 11:59 Pulse Oximetry 100 07/28/24 11:59 Reviewed MDM - Skin/Abscess/Foreign Bdy MDM Narrative Medical decision making narrative: Prescription for triamcinolone sent to pharmacy. Anticipatory guidance given. Differential Diagnosis Differential diagnosis: Likely abscess of skin or subcutaneous tissue, viral exanthem, dermatophytosis, urticaria, cellulitis, eczema, impetigo and contact dermatitis Critical Care Time Critical Care Time Critical Care Time: No Discharge Plan Discharge Clinical Impression: Contact dermatitis Qualifiers: Contact dermatitis type: unspecified Contact dermatitis trigger: unspecified trigger Qualified Code(s): L25.9 - Unspecified contact dermatitis, unspecified cause Patient Disposition: Home, Self-Care Condition: Stable Instructions: Contact Dermatitis (DC) Additional Instructions: Please use the triamcinolone as prescribed. Follow-up with your PCP if symptoms do not improve or worsen with the ointment. Your blood pressure was elevated above 120/80 today at Urgent Care. This puts you above the threshold for follow up. Please schedule a followup visit with your personal physician as soon as possible, for further evaluation and treatment. Even blood pressure exceeding 120/80 may indicate pre-hypertension. Patient Language: Martiniquais Prescriptions: New triamcinolone acetonide 0.1 % cream 1 applic topical BID Qty: 30 0RF No Action (DME) nebulizers [Aeroneb Go Nebulizer] Misc See Rx Instructions .Route Qty: 1 0RF Rx Instructions: As directed albuterol sulfate 90 mcg/actuation HFA aerosol inhaler 2 puff inhalation QID PRN (Reason: shortness of breath or wheezing) Qty: 6.7 1RF cetirizine [Zyrtec] 10 mg Tablet 10 mg PO DAILY albuterol sulfate 2.5 mg /3 mL (0.083 %) solution for nebulization 2.5 mg inhalation Q6H PRN (Reason: Shortness Of Breath) Follow-up/Referrals: PHYSICIAN,LAN/WAN ENGINEER [Primary Care Provider] - Time of Disposition: 12:32
== END 2024-07-28 12:39 | disposition home or self-care (01) ==
PROVIDERS: Emergency Provider Nurse Practitioner
DX: L25.9 Unspecified contact dermatitis, unspecified cause (principal); J45.909 Unspecified asthma, uncomplicated
CPT/HCPCS: 99213; G0463